=== PATIENT | male | born 1970 | race Caucasian/White ===

== ENCOUNTER 2017-05-14 08:49 | Emergency (ER) | payer OTHER, SELFPAY ==
[2017-05-14 09:14] VITALS: BP 141/95; PULSE 85; RESP 20; TEMP 36.8; O2SAT 98; BMI 33.0
--- NOTE | 2017-05-14 09:21 | HMH.EDUTC ---
[facility] [place]ression: Traumatic hematoma of left thigh Disposition: Home, Self-Care Condition on Discharge: Good Instructions: DI for Hematoma (Bruise) Additional Instructions: Read attached education Since ice isn't helping, try moist heat Start compression with either plastic wrap or provided carli wrap. Be sure not too tight to effect blood supply to your lower leg. Elevate when at home Monitor closely. Follow up immediately for new or worsening symptoms like we discussed. Can take 4-8 weeks to resolve completely but should start to notice gradual improvement. If not, could require surgical evaluation so be sure to follow up. Referrals: Provider,Referral, [Primary Care Provider] - (we have provided you with a list of providers accepting patients. I would encourage you find him a primary care provider and make an appt BEAN as it can take weeks to get a new patient appointment. In the meantime, follow up in the clinic or ER for new, worsening or persistent symptoms. even healthy adults need routine check-ups) Time of Disposition: 09:36 Medical Decision Making Vital Signs: 05/14/17 09:14 Temperature 98.2 F Temperature Source Temporal Artery Scan Pulse Rate [Brachial] 85 Respiratory Rate 20 Blood Pressure [Right Arm] 141/95 Blood Pressure Mean [Right Arm] 110 Blood Pressure Source [Right Arm] Automatic Cuff Blood Pressure Position [Right Arm] Sitting 02 Sat by Pulse Oximetry 98 - Gary Inquiry Pt receiving controlled substance: No - Reevaluation(s) Time: 09:10 Reevaluation #1: Discussed xrays to r/o fracture. Pt declined. FROM and no tenderness except over hematoma. He doesn't feel necessary. Worried just because knot hasn't gotten smaller [facility] [place] - General Stated complaint: fell last 05/06/17 knot on left hip Time Seen by Provider: 05/14/17 09:07 Mode of Arrival: Ambulatory Source of Information: Patient Limitations: No Limitations Description of Symptoms (Recalled from Triage Doc. by RN): FELL LAST SUNDAY AND HAS KNOT ON LEFT HIP HEENT Symptoms (Recalled from RN notes): No Resp Symptoms (Recalled from RN notes): No Skin Symptoms (Recalled from RN notes): No MS Symptoms (Recalled from RN notes): Yes Functional Status (Recalled from RN notes): NA - History of Present Illness Provider Complaint: c/o swelling to left hip/thigh x 1 week. Slid on a step and hit this area on the edge of the step. After laying for 10 minutes got up and walked it off. 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 Over the last week, bruising and pain improved but size of knot hasn't changed. Denies PMHx. On no medications. Hasn't taken anything for symptoms. Has been applying ice multiple times a day. No heat. Denies limited ROM or joint pain. Just the knot. [place] like fire at first but now barely aches if I touch it too hard . - Related Data Home Medications Medication Instructions Recorded Confirmed No Known Home Medications [No 05/14/17 05/14/17 Known Home Medications] Allergies Allergy/AdvReac Type Severity Reaction Status Date / Time No Known Allergies Allergy Verified 05/14/17 09:16 - Worker's Comp Is this a Worker's Comp case?: No [facility] History I have reviewed the patient's past medical history: Yes (denies PMHx) Other Surgeries: Yes: No Previous Surgery - *Social History Alcohol Intake: never - Psychiatric History Expresses thoughts of harming self/others: None Suicide Plan Description: No Plan ROS Obtained: Yes Systems reviewed as appropriate & no additional complaints - Constitutional Constitutional: Denies fatigue, Denies fever(s), Denies weakness - Gastrointestinal Gastrointestingal: Denies: abdominal pain - Musculoskeletal Musculoskeletal: Reports as per HPI, Denies abnormal gait, Denies back pain, Denies muscle weakness, Denies radiating pain into limb, Denies tingling - Integumentary/Breasts Skin/Breast: Reports as per HPI
--- NOTE | 2017-05-14 09:24 | ED_ITS ---
[facility] [place]: Traumatic hematoma of left thigh Disposition: Home, Self-Care Condition on Discharge: Good Instructions: DI for Hematoma (Bruise) Additional Instructions: Read attached education Since ice isn't helping, try moist heat Start compression with either plastic wrap or provided carli wrap. Be sure not too tight to effect blood supply to your lower leg. Elevate when at home Monitor closely. Follow up immediately for new or worsening symptoms like we discussed. Can take 4-8 weeks to resolve completely but should start to notice gradual improvement. If not, could require surgical evaluation so be sure to follow up. Referrals: Provider,Referral, [Primary Care Provider] - (we have provided you with a list of providers accepting patients. I would encourage you find him a primary care provider and make an appt BEAN as it can take weeks to get a new patient appointment. In the meantime, follow up in the clinic or ER for new, worsening or persistent symptoms. even healthy adults need routine check-ups) Time of Disposition: 09:36 Medical Decision Making Vital Signs: 05/14/17 09:14 Temperature 98.2 F Temperature Source Temporal Artery Scan Pulse Rate [Brachial] 85 Respiratory Rate 20 Blood Pressure [Right Arm] 141/95 Blood Pressure Mean [Right Arm] 110 Blood Pressure Source [Right Arm] Automatic Cuff Blood Pressure Position [Right Arm] Sitting 02 Sat by Pulse Oximetry 98 - Gary Inquiry Pt receiving controlled substance: No - Reevaluation(s) Time: 09:10 Reevaluation #1: Discussed xrays to r/o fracture. Pt declined. FROM and no tenderness except over hematoma. He doesn't feel necessary. Worried just because knot hasn't gotten smaller [facility] [place] - General Stated complaint: fell last 05/06/17 knot on left hip Time Seen by Provider: 05/14/17 09:07 Mode of Arrival: Ambulatory Source of Information: Patient Limitations: No Limitations Description of Symptoms (Recalled from Triage Doc. by RN): FELL LAST SUNDAY AND HAS KNOT ON LEFT HIP HEENT Symptoms (Recalled from RN notes): No Resp Symptoms (Recalled from RN notes): No Skin Symptoms (Recalled from RN notes): No MS Symptoms (Recalled from RN notes): Yes Functional Status (Recalled from RN notes): NA - History of Present Illness Provider Complaint: c/o swelling to left hip/thigh x 1 week. Slid on a step and hit this area on the edge of the step. After laying for 10 minutes got up and walked it off. 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 Over the last week, bruising and pain improved but size of knot hasn't changed. Denies PMHx. On no medications. Hasn't taken anything for symptoms. Has been applying ice multiple times a day. No heat. Denies limited ROM or joint pain. Just the knot. [place] like fire at first but now barely aches if I touch it too hard . - Related Data Home Medications Medication Instructions Recorded Confirmed No Known Home Medications [No 05/14/17 05/14/17 Known Home Medications] Allergies Allergy/AdvReac Type Severity Reaction Status Date / Time No Known Allergies Allergy Verified 05/14/17 09:16 - Worker's Comp Is this a Worker's Comp case?: No [facility] History I have reviewed the patient's past medical history: Yes (denies PMHx) Other Surgeries: Yes: No Previous Surgery - *Social History Alcohol Intake: never -
== END 2017-05-14 09:47 | disposition home or self-care (01) ==
PROVIDERS: Emergency Provider Nurse Practitioner Family
DX: S70.12XA Contusion of left thigh, initial encounter (principal); W01.0XXA Fall on same level from slipping, tripping and stumbling without subsequent striking against object, initial encounter; Y93.9 Activity, unspecified; Y92.9 Unspecified place or not applicable
CPT/HCPCS: 99202